=== PATIENT | male | born 1975 | race Caucasian/White ===

== ENCOUNTER 2020-03-27 09:29 | Emergency (ER) | payer MEDICAID, SELFPAY ==
[2020-03-27 09:31] VITALS: BP 159/85; PULSE 103; RESP 18; TEMP 36.6; O2SAT 97; BMI 23.6
[2020-03-27 09:59] LABS: Basophils # 0.1 K/mm3 (0-0.2); Basophils % 0.5 % (0.1-2.0); Eosinophils # 0.2 K/mm3 (0.0-0.4); Eosinophils % 1.5 % (0.1-12.0); Hematocrit 42.1 % (42.0-52.0); Hemoglobin 14.3 g/dL (14.1-18.0); Lymphocytes # 2.4 K/mm3 (0.7-4.5); Lymphocytes % 21.3 % (10-50); Mean Corpuscular HGB Conc 34.1 g/dL (31.8-35.4); Mean Corpuscular Hemoglobin 28.4 pg (27.0-31.2); Mean Corpuscular Volume 83.4 fl (80-94); Mean Platelet Volume 6.7 fl (7.4-10.4); Monocytes # 0.6 K/mm3 (0.1-1.0); Monocytes % 5.1 % (1.7-9.3); Neutrophils # 8.1 K/mm3 (1.8-7.8); Neutrophils % 71.6 % (37.0-80.0); Platelet Count 351 K/mm3 (142-424); Red Blood Count 5.04 M/mm3 (4.60-6.20); Red Cell Distribution Width 14.5 % (11.5-17.5); White Blood Count 11.4 K/mm3 (4.8-10.8)
[2020-03-27 10:04] LABS: Chloride 105 mmol/L (98-107); Potassium 3.9 mmoL/L (3.5-5.1); Sodium 138 mmol/L (136-145)
[2020-03-27 10:07] LABS: Alanine Aminotransferase 31 U/L (12-78); Albumin Level 4.5 g/dl (3.5-5.0); Albumin/Globulin Ratio 1.2 (1.1-1.8); Alkaline Phosphatase 72 U/L (38-126); Anion Gap 10.9 mEq/L (5-15); Aspartate Amino Transferase 38 U/L (17-59); Bilirubin,Total 0.5 mg/dl (0.2-1.3); Blood Urea Nitrogen 9 mg/dl (9-20); Carbon Dioxide 26 mmol/L (22.0-30.0); Creatinine Clearance Estimated 141 mL/min (50-200); Estimated Glomerular Filt Rate 124 ml/min (>60); GFR (African American) 150 ML/MIN (>60); Globulin 3.9 g/dL (1.3-3.2); Glucose 119 mg/dl (74-100); Total Protein,Serum 8.4 g/dl (6.3-8.2)
[2020-03-27 11:01] VITALS: BP 150/87; PULSE 90; RESP 20; TEMP 36.8; O2SAT 98
--- NOTE | 2020-03-27 11:01 | [facility].EDSKAF ---
ED Disposition Clinical Impression: Cellulitis Disposition: Home, Self-Care Condition on Discharge: Good Instructions: DI for Skin Abscess, Cellulitis Prescriptions: clindamycin HCL [Clindamycin HCl 300mg Cap] 300 mg PO Q6 10 Days #40 cap Transmission Status: Pending to [facility] Referrals: Norberto Ramsey MD [Primary Care Provider] - Forms: Work/School Release - Critical Care Critical Care Time: No Attestation: On 03/27/20, the high probability of a clinically significant, sudden or life threatening deterioration of the following system(s) required my full and direct attention, intervention and personal management. The time I documented below is in addition to time spent performing reported procedures but includes the following listed in this critical care notation. Medical Decision Making - Louis Inquiry Pt receiving controlled substance: No Vital Signs: 03/27/20 09:31 Temperature 97.9 F Temperature Source Oral Pulse Rate [Right] 103 H Respiratory Rate 18 Blood Pressure [Right Arm] 159/85 H Blood Pressure Mean [Right Arm] 109 02 Sat by Pulse Oximetry 97 - Lab Data Lab Results 03/27/20 09:55: WBC 11.4 H, RBC 5.04, Hgb 14.3, Hct 42.1, MCV 83.4, MCH 28.4, MCHC 34.1, RDW 14.5, Plt Count 351, MPV 6.7 L, Neut % (Auto) 71.6, Lymph % (Auto) 21.3, [place] % (Auto) 5.1, Eos % (Auto) 1.5, Baso % (Auto) 0.5, Neut # (Auto) 8.1 H, Lymph # (Auto) 2.4, [place] # (Auto) 0.6, Eos # (Auto) 0.2, Baso # (Auto) 0.1 03/27/20 09:55: Sodium 138, Potassium 3.9, Chloride 105, Carbon Dioxide 26, Anion Gap 10.9, BUN 9, Creatinine 0.70, Estimated Creat Clear 141, Estimated GFR 124, Est GFR ( Amer) 150, Glucose 119 H, Calcium 9.0, Total Bilirubin 0.5, AST 38, ALT 31, Alkaline Phosphatase 72, Total Protein 8.4 H, Albumin 4.5, Globulin 3.9 H, Albumin/Globulin Ratio 1.2 Result diagrams: 03/27/20 09:55 03/27/20 09:55 Orders (Tests/Meds): ED MEDICATIONS Discontinued Medications Generic Name Dose Route Start Last Admin Trade Name Reva PRN Reason Stop Dose Admin Clindamycin Phosphate 900 mg/ 106 mls @ 100 mls/hr 03/27/20 09:42 03/27/20 09:56 Sodium Chloride IV 03/27/20 10:45 100 mls/hr ONCE ONE Administration Protocol Skin/Abscess/FB HPI - General Chief complaint: Skin/Abscess/Foreign Body Stated complaint: left arm infected Time Seen by Provider: 03/27/20 11:00 Mode of Arrival: Ambulatory Limitations: No Limitations Description of Symptoms (Recalled from ER Triage Doc. by RN): Abcess to the left forearm from injecting heroin, pt states he was treated at [facility] a week ago for this and had an I&D and given IV abx, pt states it has not gotten any better. - History of Present Illness MD complaint: abscess/boil Onset (ago): day(s) Tetanus up to date: yes Location: generalized, LUE Severity: moderate Severity scale (1-10): 4 Quality: burning, stabbing Consistency: constant Relieving factors: none Exacerbating factors: none Context: none Associated symptoms: denies other symptoms Treatments prior to arrival: none - Related Data Previous Rx's Medication Instructions Recorded clindamycin HCL [Clindamycin HCl 300 mg PO Q6 10 Days #40 cap 03/27/20 300mg Cap] Allergies Allergy/AdvReac Type Severity Reaction Status Date / Time No Known Allergies Allergy Unverified 10/02/17 14:32 [facility] History - Hepatitis A Screen Drug use history?: No High risk sexual behaviors?: No History of sexually transmitted infection?: No Currently employed?: No Childcare worker?: No Do you have indoor plumbing?: Yes Do you have electricity?: Yes Attestation statement:: This patient has been screened for Hepatitis A risk factors. I have reviewed the patient's past medical history: Yes - Social History Smoking Status: Current every day smoker # Packs/Day (cigarettes): 1 Alcohol Intake: never Substance Use Type: heroin Occupational Status: employed [employer] Obt[employer]
== END 2020-03-27 11:14 | disposition home or self-care (01) ==
PROVIDERS: Emergency Provider Family Medicine; PCP Emergency Medicine
DX: L03.114 Cellulitis of left upper limb (principal); F17.210 Nicotine dependence, cigarettes, uncomplicated
CPT/HCPCS: 80053; 85025; 96365; 96367; 99282; 99283